=== PATIENT | female | born 1950 | race Caucasian/White ===

== ENCOUNTER → 2016-10-20 | Outpatient (REF) | payer MEDICARE, BC | LOC: M SFHCLERA 09:57 | PROVIDERS: ATTEND Family Medicine | DX: Z13.1 Encounter for screening for diabetes mellitus (principal); Z11.59 Encounter for screening for other viral diseases; Z13.220 Encounter for screening for lipoid disorders; E78.5 Hyperlipidemia, unspecified ==

== ENCOUNTER → 2016-11-18 | Outpatient (REF) | payer MEDICARE, BC ==
[2016-11-18 18:05] LABS: ALBUMIN 3.6 GM/DL (3.2-5.2); ALBUMIN/GLOBULIN RATIO 0.97 (1.00-1.93); BILIRUBIN,DIRECT 0.2 MG/DL (0.0-0.2); BILIRUBIN,TOTAL 1.4 MG/DL (0.2-1.0); TOTAL PROTEIN 7.3 GM/DL (6.4-8.2)
== END ==
LOC: M SFHCLERA 08:32
PROVIDERS: ATTEND Family Medicine
DX: E78.2 Mixed hyperlipidemia (principal); I10 Essential (primary) hypertension

== ENCOUNTER → 2016-12-03 | Outpatient (REF) | payer BC, MEDICARE ==
[2016-12-03 18:34] LABS: MEAN CORPUSCULAR HEMOGLOBIN 28.3 pg (27.0-33.0); MEAN CORPUSCULAR HGB CONC 32.2 g/dl (32.0-36.5); MEAN CORPUSCULAR VOLUME 88.1 fl (80.0-96.0); RED CELL DISTRIBUTION WIDTH 13.3 % (11.5-14.5); RETIC HEMOGLOBIN CONTENT CHr 30.1 PG (24-36); RETICULOCYTE ABSOLUTE ADVIA212 58 x10(9)/L (17-77); WHITE BLOOD COUNT 8.9 K/mm3 (4.0-10.0)
[2016-12-03 18:42] LABS: FREE T4 1.14 NG/DL (0.76-1.46)
[2016-12-03 22:00] LABS: EOSINOPHILS 9 % (0-5)
[2016-12-03 22:01] LABS: SCHISTOCYTES 1+
== END ==
LOC: M SFHCLERA 13:11
PROVIDERS: ATTEND Family Medicine
DX: E80.6 Other disorders of bilirubin metabolism (principal); E78.5 Hyperlipidemia, unspecified

== ENCOUNTER → 2017-01-22 | Outpatient (REF) | payer BC, MEDICARE ==
[2017-01-22 12:02] LABS: BASO % 0.7 % (0.0-1.0); EOS # 0.5 K/mm3 (0.0-0.50); EOS % 7.1 % (0.0-3.0); LARGE UNSTAINED CELL # 0.1 K/mm3 (0.0-0.4); LARGE UNSTAINED CELL % 1.9 % (0.0-4.0); LYMPH # 2.7 K/mm3 (1.5-4.5); LYMPH % 37.1 % (24.0-44.0); MEAN CORPUSCULAR HEMOGLOBIN 27.9 pg (27.0-33.0); MEAN CORPUSCULAR HGB CONC 32.5 g/dl (32.0-36.5); MONO # 0.5 K/mm3 (0.0-0.8); MONO % 7.5 % (0.0-5.0); NEUTROPHILS # 3.2 K/mm3 (1.8-7.7); NEUTROPHILS % 45.6 % (36.0-66.0); PLATELET COUNT, AUTOMATED 314 k/mm3 (150-450); RED CELL DISTRIBUTION WIDTH 13.4 % (11.5-14.5)
[2017-01-22 12:37] LABS: ALBUMIN 3.8 GM/DL (3.2-5.2); ALBUMIN/GLOBULIN RATIO 0.95 (1.00-1.93); BILIRUBIN,DIRECT 0.2 MG/DL (0.0-0.2); BILIRUBIN,TOTAL 1.3 MG/DL (0.2-1.0); TOTAL PROTEIN 7.8 GM/DL (6.4-8.2)
== END ==
LOC: M SFHCLERA 10:07
PROVIDERS: ATTEND Family Medicine
DX: E78.2 Mixed hyperlipidemia (principal)

== ENCOUNTER → 2017-01-30 | Outpatient (CLI) | payer BC, MEDICARE ==
--- NOTE | 2017-01-30 16:11 | REP ---
LEFT SHOULDER, THREE VIEWS: HISTORY: Tendonitis. There is no acute fracture or dislocation. There is narrowing of the acromioclavicular joint space. An osteophyte is present on the superolateral head of the humerus. IMPRESSION: Degenerative change as described above. Signed by Silas Melgar MD 01/30/2017 04:12 P
--- NOTE | 2017-01-30 16:34 | REP ---
RIGHT HIP, TWO VIEWS: HISTORY: Arthritis. There is no acute fracture or dislocation. There is narrowing of the joint space with associated osteophyte formation and sclerosis. IMPRESSION: Degenerative change as described above. Signed by Silas Melgar MD 01/30/2017 04:44 P
== END ==
LOC: M LRY 13:56
PROVIDERS: ATTEND Family Medicine
DX: M19.012 Primary osteoarthritis, left shoulder (principal); M16.11 Unilateral primary osteoarthritis, right hip
CPT/HCPCS: 73030; 73502; G0463

== ENCOUNTER → 2018-04-15 | Outpatient (REF) | payer BC ==
[2018-04-15 16:59] LABS: ANION GAP 9 MEQ/L (8-16); BLOOD UREA NITROGEN 11 MG/DL (7-18); CALCIUM LEVEL 9.4 MG/DL (8.8-10.2); CARBON DIOXIDE LEVEL 26 MEQ/L (21-32); CHLORIDE LEVEL 108 MEQ/L (98-107); CHOLESTEROL LEVEL 285 MG/DL (<200); CREATININE FOR GFR 0.76 MG/DL (0.55-1.30); GLOMERULAR FILTRATION RATE > 60.0 (>45); GLUCOSE, FASTING 87 MG/DL (70-100); HDL CHOLESTEROL 52 MG/DL (>40); LDL CHOLESTEROL 206 MG/DL (<100); NON-HDL-C 233 MG/DL; SODIUM LEVEL 143 MEQ/L (136-145); TRIGLYCERIDES LEVEL 135 MG/DL (<150)
== END ==
LOC: M SFHCLERA 12:36
DX: Z13.220 Encounter for screening for lipoid disorders (principal); Z12.11 Encounter for screening for malignant neoplasm of colon; Z13.1 Encounter for screening for diabetes mellitus
CPT/HCPCS: 80061

== ENCOUNTER 2025-06-14 17:30 | Day surgery (SDC) | payer MEDICARE ==
[~2025-06-14] VITALS: Ht 160 cm; Wt 57.7 kg
[2025-06-14 18:01] LABS: BASO # 0.1 10^3/uL (0.0-0.2); BASO % 0.7 % (0.0-1.0); EOS # 0.1 10^3/uL (0.0-0.5); EOS % 1.0 % (0.0-3.0); LYMPH # 2.6 10^3/uL (1.5-5.0); LYMPH % 24.1 % (24.0-44.0); MONO # 0.9 10^3/uL (0.0-0.8); MONO % 8.8 % (2.0-8.0); NEUTROPHILS # 7.0 10^3/uL (1.5-8.5); NEUTROPHILS % 65.2 % (36.0-66.0); PLATELET COUNT, AUTOMATED 386 10^3/uL (150-450)
[2025-06-14] MEDS: GLUCAGON INJ 1 MG VIAL IV STA (18:18)
[2025-06-14 18:29] LABS: ALT/SGPT 16 U/L (7.0-40); AST/SGOT 15 U/L (<34); CALCIUM LEVEL 8.9 MG/DL (8.3-10.6); CARBON DIOXIDE LEVEL 26 MMOL/L (20-31); CHLORIDE LEVEL 107 MMOL/L (98-107); CREATININE FOR GFR 0.69 MG/DL (0.55-1.30); GLOMERULAR FILTRATION RATE > 90.0 (>39); POTASSIUM SERUM 4.4 MMOL/L (3.5-5.1); SODIUM LEVEL 144 MMOL/L (136-145)
[2025-06-14] MEDS ORDERED: ISOVUE-370 76% 100 ML VIAL As Ordered ONE (19:36)
[2025-06-14] MEDS ORDERED: LIDOCAINE 2% 100 MG/5 ML SDV (FOR ANES.) As Ordered ONE (21:21)
[2025-06-14] MEDS ORDERED: SUCCINYLCHOLINE 100MG/5ML SYRINGE As Ordered ONE (21:22)
[2025-06-14] MEDS ORDERED: ROCURONIUM BROMIDE 50MG/5ML VIAL As Ordered ONE (21:22)
[2025-06-14] MEDS ORDERED: dexAMETHasone 4 MG/ML 1 ML VIAL As Ordered ONE (21:24)
[2025-06-14] MEDS ORDERED: MIDAZOLAM INJ 2 MG/2 ML VIAL As Ordered ONE (21:28)
[2025-06-14] MEDS ORDERED: HOME MED LIST COMPLETE! XX SCH (21:35)
[2025-06-14] MEDS ORDERED: THERTAB52 PO (21:35)
[2025-06-14] MEDS ORDERED: BAYE500T2 PO (21:35)
[2025-06-14] MEDS ORDERED: PHENYLephrine 500MCG 5ML (100MCG/ML) SYRINGE As Ordered ONE (22:16)
[2025-06-14] MEDS ORDERED: SUGAMMADEX SODIUM 200 MG/2 ML VIAL As Ordered ONE (22:22)
[2025-06-14] MEDS ORDERED: ACETAMINOPHEN 1000MG/100ML IV BAG As Ordered ONE (22:27)
[2025-06-14] MEDS ORDERED: LR 1,000 ML IV SCH (22:35)
[2025-06-14] MEDS ORDERED: ONDANSETRON 4MG/2ML VIAL IV PRN (22:35)
[2025-06-14] MEDS ORDERED: HYDROMORPHONE HCL 0.5 MG/0.5 ML SYRINGE IV PRN (22:35)
[2025-06-14 22:39] VITALS: TEMP 98.7
[2025-06-14 23:20] VITALS: BP 151/73; O2SAT 100
== END 2025-06-14 23:33 | disposition home or self-care (01) ==
LOC: EDBD 17:30 → M ED 17:30 → M SDC 17:31 → M ED INP 21:07 → UNDOADMIN 21:07 → M SDC 23:33 → UNDODISIN 06-18 21:43
PROVIDERS: ATTEND Internal Medicine Gastroenterology
DX: T18.128A Food in esophagus causing other injury, initial encounter (principal); Y92.018 Other place in single-family (private) house as the place of occurrence of the external cause; K22.2 Esophageal obstruction; K21.00 Gastro-esophageal reflux disease with esophagitis, without bleeding; K44.9 Diaphragmatic hernia without obstruction or gangrene; J45.909 Unspecified asthma, uncomplicated; Z87.891 Personal history of nicotine dependence; Z91.013 Allergy to seafood
CPT/HCPCS: 43239; 43247; 71260; 74177; 80047; 80048; 80076; 83690; 85025; 88305; 96374; 99284; J0131; J0330; J1100; J1610; J2250; J2371; J3010; Q9967